=== PATIENT | female | born 1975 ===

== ENCOUNTER 2018-09-11 20:46 | Inpatient (IN) | payer BC ==
[2018-09-11] MEDS ORDERED: Sodium Chloride 0.9% 1,000 ML IV STA (22:01)
[2018-09-11 22:37] LABS: BASO % 0.6 % (0.0-2.0); EOS # 0.1 K/uL (0.0-0.7); EOS % 1.8 % (0.0-4.0); HEMOGLOBIN 11.3 g/dL (12.0-16.0); LYMPH % 40.2 % (20.0-40.0); MEAN CELL VOLUME 86.3 fl (81.0-99.0); MEAN CORPUSCULAR HEMOGLOBIN 28.4 pg (27.0-31.0); MEAN PLATELET VOLUME 10.3 fl (7.2-11.7); MONO # 0.3 K/uL (0.0-0.8); MONO % 6.6 % (0.0-10.0); NEUT # 2.5 K/uL (1.8-7.0); NEUT % 50.8 % (50.0-75.0); NRBC % 0.1 % (0.0-0.0); RBC 3.96 Mil/uL (3.80-5.20); RED CELL DISTRIBUTION WIDTH 13.9 % (11.5-14.5)
[2018-09-11 22:47] LABS: ALB/GLOB RATIO 1.3 (1.0-2.1); ALBUMIN 3.8 g/dL (3.5-5.0); ALT/SGPT 20 U/L (9-52); AST/SGOT 19 U/L (14-36); BLOOD UREA NITROGEN 23 mg/dl (7-17); CALCIUM 8.5 mg/dL (8.4-10.2); GFR NON-AFRICAN AMERICAN 60; LIPASE 150 U/L (23-300)
[2018-09-11 22:49] LABS: SQUAMOUS EPITHIAL 1 /hpf (0-5); URINE BACTERIA RARE (<OCC); URINE BILIRUBIN NEGATIVE (NEGATIVE); URINE BLOOD NEGATIVE (NEGATIVE); URINE CLARITY SLIGHTY-CLOUDY (Clear); URINE COLOR YELLOW (YELLOW); URINE GLUCOSE (UA) NEG (NEGATIVE); URINE LEUKOCYTE ESTERASE NEG Leu/uL (Negative); URINE PROTEIN 30 mg/dL (NEGATIVE); URINE UROBILINOGEN 0.2-1.0 mg/dL (0.2-1.0)
--- NOTE | 2018-09-11 23:09 | ED PDOC ---
HPI: Abdomen Time Seen by Provider: 09/11/18 21:33 Chief Complaint (Nursing): Abdominal Pain Chief Complaint (Provider): Abdominal Pain History Per: Patient History/Exam Limitations: no limitations Onset/Duration Of Symptoms: Days (x 1 week) Current Symptoms Are (Timing): Still Present Quality Of Discomfort: "Pain" Associated Symptoms: Nausea Exacerbating Factors: Food Additional Complaint(s): 43 year old female with a history of gastritis presents to the ED with abdominal pain for 1 week. Patient was seen at [facility] for same symptoms, had CT performed that revealed gallbladder thickening, but no stones. She was discharged from the ER and told to follow up with her primary doctor. Since then, the pain has gotten worse. Patient reports pain and nausea after eating. Denies fever and diarrhea. PMD: in [place] Past Medical History Reviewed: Historical Data, Nursing Documentation, Vital Signs Vital Signs: Last Vital Signs Temp 98.3 F 09/11/18 20:55 Pulse 67 09/11/18 20:55 Resp 16 09/11/18 20:55 BP 121/66 09/11/18 20:55 Pulse Ox 99 09/11/18 20:55 Primary Care Provider: FAMILY PROVIDER,NO - Medical History PMH: No Chronic Diseases, Gastritis - Surgical History Other surgeries: gastric sleeve, breast surgery and tubal ligation - Family History Family History: States: Unknown Family Hx - Social History Current smoker - smoking cessation education provided: No Alcohol: None Drugs: Denies - Home Medications Home Medications: Ambulatory Orders Medication Instructions Recorded No Known Home Med 09/12/18 - Allergies Allergies/Adverse Reactions: Allergies Allergy/AdvReac Type Severity Reaction Status Date / Time No Known Allergies Allergy Verified 09/11/18 20:54 Review of Systems ROS Statement: Except As Marked, All Systems Reviewed And Found Negative Constitutional: Negative for: Fever Gastrointestinal: Positive for: Nausea, Abdominal Pain. Negative for: Vomiting, Diarrhea Physical Exam - Reviewed Nursing Documentation Reviewed: Yes Vital Signs Reviewed: Yes - Physical Exam Appears: Positive for: Uncomfortable Head Exam: Positive for: ATRAUMATIC, NORMAL INSPECTION, NORMOCEPHALIC Skin: Positive for: Normal Color, Warm, Dry Eye Exam: Positive for: EOMI, Normal appearance, PERRL ENT: Positive for: Normal ENT Inspection Neck: Positive for: Normal, Painless ROM, Supple Cardiovascular/Chest: Positive for: Regular Rate, Rhythm. Negative for: Murmur Respiratory: Positive for: Normal Breath Sounds. Negative for: Respiratory Distress Gastrointestinal/Abdominal: Positive for: Other (Schwarz's sign). Negative for: Mass, Guarding Back: Positive for: Normal Inspection. Negative for: L CVA Tenderness, R CVA Tenderness Extremity: Positive for: Normal ROM. Negative for: Deformity Neurological/Psych: Positive for: Awake, Alert, Normal Tone, Oriented (x 3). Negative for: Motor/Sensory Deficits - Laboratory Results Result Diagrams: 09/12/18 06:11 09/12/18 06:11 Lab Results: Total Bilirubin 0.3 mg/dl (0.2-1.3) 09/11/18 22: AST 19 U/L (14-36) 09/11/18: ALT 20 U/L (9-52) 09/11/18 22: Alkaline Phosphatase 54 U/L (38-126) 09/11/18 22: Total Protein 6.9 G/DL (6.3-8.2) 09/11/18 22: Albumin 3.8 g/dL (3.5-5.0) 09/11/18 22: Globulin 3.0 gm/dL (2.2-3.9) 09/11/18 22: Albumin/Globulin Ratio 1.3 (1.0-2.1) 09/11/18 22: Lipase 150 U/L (23-300) 09/11/18 22:28 Urine Color Yellow (YELLOW) 09/11/18 22: Urine Clarity Slighty-cloudy (Clear) 09/11/18 22: Urine pH 6.0 (5.0-8.0) 09/11/18 22: Ur Specific [place] 1.026 (1.003-1.030) 09/11/18 22: Urine Protein 30 mg/dL (NEGATIVE) 09/11/18 22: Urine Glucose (UA) Neg mg/dL (NEGATIVE) 09/11/18 22: Urine Ketones Negative mg/dL (NEGATIVE) 09/11/18 22: Urine Blood Negative (NEGATIVE) 09/11/18 22: Urine Nitrate Negative (NEGATIVE) 09/11/18 22: Urine Bilirubin Negative (NEGATIVE) 05/28/19 22:28 Urine Urobilinogen 0.2-1.0 mg/dL (0.2-1.0) 09/11/18 22:28 Ur Leukocyte Esterase Neg Gordon/uL (Negative) 09/11/18 22:28 Urine RBC (Auto) 3 /hpf (0-3) 09/11/18 22:28 Urine Microscopic WBC 1 /hpf (0-5) 09/11/18 22:28 Ur Squamous Epith Cells 1 /hpf (0-5) 09/11/18 22:28 Urine Bacteria Rare (<OCC) 09/11/18 22:28 - ECG O2 Sat by Pulse Oximetry: 99 (RA) Pulse Ox Interpretation: Normal Medical Decision Making Medical Decision Makin:45 Impression: 43 year old female with abdominal pain Initial Plan: --CMP --CBC --Lipase --NS IV 1,000 mls --Pepcid 20 mg IVP --Toradol 30 mg IV --Zofran 4 mg IV --Blood cx --UA --Gallbladder US 0029 US FINDINGS: LIVER: Within normal limits in size; but increased in echogenicity compatible with steatosis. No mass. GALLBLADDER: The gallbladder appears normal in size and configuration. There is gallbladder wall thickening noted which measured 5.4 mm transversely. No pericholecystic fluid detected. COMMON BILE DUCT: Within normal limits in size. 2.9 mm transverse caliber. PANCREAS: The distal pancreas is obscured by bowel gas. The visualized portion of the pancreas appears within normal limits. RIGHT KIDNEY: Unremarkable. Normal renal contours. No renal mass or calculus. No hydronephrosis. IMPRESSION: Evidence of hepatic steatosis. Thickening of the gallbladder wall may indicate chronic cholecystitis. 0055 Labs reviewed, no clinically significant abnormalities Patient will be admitted for acute cholecystitis, abdominal pain given persistent abdominal pain as well as 2nd emergency room visit; case discussed with Dr. Kaiser, vice president investor relations who will speak with Dr. Tapia. Patient to be admitted under Dr Ronquillo service as per Dr Kaiser ----- Scribe Attestation: Documented by Apryl Johnson, acting as a scribe for Lamont Torres MD Provider Scribe Attestation: All medical record entries made by the Scribe were at my direction and personally dictated by me. I have reviewed the chart and agree that the record accurately reflects my personal performance of the history, physical exam, medical decision making, and the department course for this patient. I have also personally directed, reviewed, and agree with the discharge instructions and d isposition. Disposition - Clinical Impression Clinical Impression: Cholecystitis - Disposition Disposition: Routine/Home Disposition Time: 02:00 Condition: STABLE
[2018-09-12] MEDS ORDERED: Sodium Chloride 0.9% 1,000 ML IV STA (00:55)
[2018-09-12] MEDS ORDERED: Lactated Ringer's 1,000 ML IV SCH (02:00)
--- NOTE | 2018-09-12 02:02 | CP.PCM.HP ---
<Jackeline Kaiser - Last Filed: 09/12/18 01:56> History of Present Illness - History of Present Illness History of Present Illness: Surgery: Dr. Zamarripa CC: RUQ abdominal pain HPI: Patient is a 43 y/o female w/ pmhx of sleeve gastrectomy 2yrs ago in [facility] and well as gastritis presents complaining of RUQ and epigastric pain that has been present the past two weeks. She states the pain has progressively gotten worse since. She was seen in an outside hospital and underwent CT scan which showed thicken gallbladder wall and was subsequently d/c'd home however the pain did not subsided. She reports some nausea, no vomiting. Denies fever, chills. She states she has had similar episodes in the past in which she did undergo endoscopy work up for gastritis. She was told she did have mild gastritis, biopsy negative and was placed on pepcid which she is still currently taking. She denies diarrhea or constipation. She states since her operation she has lost 78lbs over 2 years. PMH: gastritis, obesity s/p bariatric surgery PSH: sleeve gastrectomy, , EGD w/ bx Social: denies etoh, tobacco or drugs Fam: noncontributory Medications: pepcid, MV, Iron NKDA Present on Admission - Present on Admission Any Indicators Present on Admission: No Review of Systems - Constitutional Constitutional: absent: Anorexia, Chills, Fever - EENT Eyes: absent: Blurred Vision, Change in Vision Ears: absent: Disequilibrium, Dizziness Nose/Mouth/Throat: absent: Nasal Congestion, Nose Pain - Cardiovascular Cardiovascular: absent: Chest Pain, Chest Pain at Rest, Dyspnea - Respiratory Respiratory: absent: Cough, Dyspnea, Wheezing - Gastrointestinal Gastrointestinal: Abdominal Pain, Nausea. absent: Bloating, Constipation, Cramping, Diarrhea, Vomiting - Genitourinary Genitourinary: absent: Hematuria, Pyuria - Musculoskeletal Musculoskeletal: absent: Myalgias, Neck Pain - Integumentary Integumentary: absent: Lesions, Sores - Neurological Neurological: absent: Headaches, Vertigo - Psychiatric Psychiatric: absent: Anxiety, Depression - Endocrine Endocrine: absent: Fatigue, Palpitations - Hematologic/Lymphatic Hematologic: absent: Easy Bleeding, Easy Bruising Past Patient History - Past Social History Alcohol: None Drugs: Denies - GASTROINTESTINAL Hx Gastritis: Yes - PSYCHIATRIC Hx Substance Use: No Meds Allergies/Adverse Reactions: Allergies Allergy/AdvReac Type Severity Reaction Status Date / Time No Known Allergies Allergy Verified 09/11/18 20:54 Physical Exam - Constitutional Appears: Non-toxic, No Acute Distress - Head Exam Head Exam: ATRAUMATIC, NORMOCEPHALIC - Eye Exam Eye Exam: EOMI, Normal appearance - ENT Exam ENT Exam: Mucous Membranes Moist - Respiratory Exam Respiratory Exam: NORMAL BREATHING PATTERN. absent: Respiratory Distress - Cardiovascular Exam Cardiovascular Exam: REGULAR RHYTHM. absent: Tachycardia - GI/Abdominal Exam GI & Abdominal Exam: Soft, Tenderness (RUQ and epigastric, +shin's ). absent: Distended, Guarding, Hernia, Rebound Additional comments: laparoscopic incisions well healed - Extremities Exam Extremities exam: Positive for: normal inspection. Negative for: calf tenderness - Neurological Exam Neurological exam: Alert, Oriented x3 - Psychiatric Exam Psychiatric exam: Normal Affect, Normal Mood - Skin Skin Exam: Dry, Warm Results - Vital Signs Recent Vital Signs: Last Vital Signs Temp 98.3 F 09/11/18 20:55 Pulse 67 09/11/18 20:55 Resp 16 09/11/18 20:55 BP 121/66 09/11/18 20:55 Pulse Ox 99 09/12/18 01:49 - Labs Result Diagrams: 09/11/18 22:28 09/11/18 22:28 Labs: Laboratory Results - last 24 hr 09/11/18 09/11/18 09/11/18 22:28 22:28 22:28 WBC 5.0 RBC 3.96 Hgb 11.3 L Hct 34.2 MCV 86.3 MCH 28.4 MCHC 33.0 RDW 13.9 Plt Count 185 MPV 10.3 Neut % (Auto) 50.8 Lymph % (Auto) 40.2 H [place] % (Auto) 6.6 Eos % (Auto) 1.8 Baso % (Auto) 0.6 Neut # (Auto) 2.5 Lymph # (Auto) 2.0 [place] # (Auto) 0.3 Eos # (Auto) 0.1 Baso # (Auto) 0.0 Sodium 136 Potassium 3.4 L Chloride 103 Carbon Dioxide 26 Anion Gap 10 BUN 23 H Creatinine 1.0 Est GFR ( Amer) > 60 Est GFR (Non-Af Amer) 60 Random Glucose 96 Calcium 8.5 Total Bilirubin 0.3 AST 19 ALT 20 Alkaline Phosphatase 54 Total Protein 6.9 Albumin 3.8 Globulin 3.0 Albumin/Globulin Ratio 1.3 Lipase 150 Urine Color Yellow Urine Clarity Slighty-cloudy Urine pH 6.0 Ur Specific [place] 1.026 Urine Protein 30 Urine Glucose (UA) Neg Urine Ketones Negative Urine Blood Negative Urine Nitrate Negative Urine Bilirubin Negative Urine Urobilinogen 0.2-1.0 Ur Leukocyte Esterase Neg Urine RBC (Auto) 3 Urine Microscopic WBC 1 Ur Squamous Epith Cells 1 Urine Bacteria Rare - Imaging and Cardiology US - abdomen Status: Image reviewed by me, Pending (+sludge, + wall thickening, +calcified GB wall, +stones) Assessment & Plan - Assessment and Plan (Free Text) Assessment: 43 y/o female w/ acute on chronic cholecystitis Plan: -npo -ivf -iv abx -pain control -zofran -OOB -pepcid -plan for OR tomorrow after 10am -further recs per Dr. Zamarripa [facility] PGY4 <Rodney Zamarripa - Last Filed: 09/13/18 13:40> Results - Vital Signs Recent Vital Signs: Last Vital Signs Temp 99.1 F 09/13/18 12:18 Pulse 59 L 09/13/18 12:18 Resp 20 09/13/18 12:18 BP 98/59 L 09/13/18 08:24 Pulse Ox 100 09/13/18 12:18 - Labs Result Diagrams: 09/12/18 06:11 09/12/18 06:11 Assessment & Plan - Assessment and Plan (Free Text) Plan: All medical record entries made by the resident were at my direction. I have reviewed the chart and agree that the record accurately reflects my personal performance of the history, physical exam, and medical decision making.
[2018-09-12] MEDS ORDERED: Piperacillin/Tazobact 3.375 GM in Sodium Chloride 0.9% 100 ML IV STA (02:19)
[2018-09-12] MEDS ORDERED: Ciprofloxacin 400mg/200ml D5W 400 MG/200 ML BAG IV STA (02:20)
[2018-09-12] MEDS ORDERED: Ciprofloxacin 400mg/200ml D5W 400 MG/200 ML BAG IVPB ONE ×2 (02:22→08:38)
[2018-09-12] MEDS: HYDROmorphone 0.5 mg/0.5 ml ISec IVP PRN ×5 (03:23→14:14)
[2018-09-12] MEDS: Potassium Chloride 20 mEq 100 ML IVPB SCH ×2 (04:58→07:03)
[2018-09-12 06:32] LABS: BASO % 0.5 % (0.0-2.0); EOS % 0.6 % (0.0-4.0); HEMOGLOBIN 10.4 g/dL (12.0-16.0); LYMPH # 1.1 K/uL (1.0-4.3); LYMPH % 21.6 % (20.0-40.0); MEAN CELL VOLUME 86.2 fl (81.0-99.0); MEAN CORPUSCULAR HEMOGLOBIN 28.8 pg (27.0-31.0); MEAN CORPUSCULAR HGB CONC 33.3 g/dL (33.0-37.0); MEAN PLATELET VOLUME 10.3 fl (7.2-11.7); MONO # 0.3 K/uL (0.0-0.8); MONO % 5.6 % (0.0-10.0); NEUT # 3.8 K/uL (1.8-7.0); NEUT % 71.7 % (50.0-75.0); RBC 3.6 Mil/uL (3.80-5.20); RED CELL DISTRIBUTION WIDTH 13.8 % (11.5-14.5); WHITE BLOOD COUNT 5.3 K/uL (4.8-10.8)
[2018-09-12 06:38] LABS: INR 1.1; PROTHROMBIN TIME 12.6 Seconds (9.8-13.1)
[2018-09-12 06:41] LABS: PARTIAL THROMBOPLASTIN TIME 28.8 Seconds (25.6-37.1)
[2018-09-12 06:47] LABS: ALB/GLOB RATIO 1.2 (1.0-2.1); ALBUMIN 3.3 g/dL (3.5-5.0); ALT/SGPT 17 U/L (9-52); AST/SGOT 17 U/L (14-36); BLOOD UREA NITROGEN 20 mg/dl (7-17); CALCIUM 8.2 mg/dL (8.4-10.2); GFR NON-AFRICAN AMERICAN > 60
--- NOTE | 2018-09-12 08:28 | RAD ---
Date of service: 09/12/2018 PROCEDURE: CHEST RADIOGRAPH, 1 VIEW HISTORY: pre op COMPARISON: None available. FINDINGS: LUNGS: Clear. PLEURA: No pneumothorax or pleural fluid seen. CARDIOVASCULAR: No aortic atherosclerotic calcification present. Normal. OSSEOUS STRUCTURES: No significant abnormalities. VISUALIZED UPPER ABDOMEN: Normal. OTHER FINDINGS: None. IMPRESSION: No active disease.
[2018-09-12] MEDS ORDERED: Ciprofloxacin 400mg/200ml D5W 400 MG/200 ML BAG IVPB SCH (09:00)
[2018-09-12] MEDS ORDERED: Propofol 10 mg/ml Inj (20 ML) ONE (10:13)
[2018-09-12] MEDS ORDERED: Midazolam 2 MG/2 ML VIAL ONE (10:13)
[2018-09-12] MEDS ORDERED: ePHEDrine 50 mg/ml Inj ONE (10:14)
[2018-09-12] MEDS ORDERED: Rocuronium 10 mg/ml (5 ml) ONE (10:15)
[2018-09-12] MEDS ORDERED: Succinylcholine 200 mg/10 ml Inj IV ONE (10:16)
[2018-09-12] MEDS ORDERED: Lidocaine 4% (Laryng-O-Jet) Kit MM ONE (10:16)
--- NOTE | 2018-09-12 10:23 | CARD ---
APPROVED REPORT Date of service: 09/12/2018 EKG Measurement Heart [id number] <Conclusion> Sinus bradycardia Otherwise normal ECG
[2018-09-12] MEDS ORDERED: Bupivacaine 0.5% Inj(30mL) ONE (10:42)
[2018-09-12] MEDS ORDERED: Lactated Ringer's 1,000 ML IV ONE ×2 (10:55→12:23)
[2018-09-12] MEDS ORDERED: Dexamethasone 4 mg/1 ml ONE (11:24)
[2018-09-12] MEDS ORDERED: Neostigmine 1:1000 (1 mg/ml) Inj ONE (11:39)
--- NOTE | 2018-09-12 12:26 | PCM.SURG1 ---
Surgeon's Initial Post Op Note - Surgeon's Notes Surgeon: Dr. Tapia Supervisor Sterile Processing: PGY2 Type of Anesthesia: General Endo Anesthesia Administered By: Dr. Paige Pre-Operative Diagnosis: Acute Cholecystitis Operative Findings: Acute and Chronically inflammed gallbadder. Critical view of saftey achieved. Stone palpated in gallbladder. Post-Operative Diagnosis: Acute on Chronic Cholecystitis Operation Performed: 1. Laparoscopic Cholecystectomy Specimen/Specimens Removed: 1. Gallbadder Estimated Blood Loss: EBL {In ML}: 5 Drains Used: No Drains Post-Op Condition: Good Date of Surgery/Procedure: 09/12/18 Time of Surgery/Procedure: 12:36
--- NOTE | 2018-09-12 13:19 | US ---
Date of service: 09/11/2018 HISTORY: RUQ COMPARISON: None. TECHNIQUE: Sonographic evaluation of the right upper quadrant of the abdomen. FINDINGS: LIVER: Measures 15.1 cm in length. Normal echogenicity of the liver parenchyma. No mass. No intrahepatic bile duct dilatation. GALLBLADDER: Gallbladder moderately distended with diffuse gallbladder wall thickening measuring up to 5 mm. No pericholecystic fluid. No intraluminal gallstones present. No positive sonographic Schwarz sign elicited. Some possible echogenicities within the gallbladder wall thickened appearance nonshadowing. COMMON BILE DUCT: Measures 3 mm. No stones. No dilatation. PANCREAS: Unremarkable as visualized. No mass. No ductal dilatation. RIGHT KIDNEY: Measures 11.1 x 4.0 x 3.7 cm in length. Normal echogenicity. No calculus, mass, or hydronephrosis. AORTA: No aneurysmal dilatation. IVC: Unremarkable. OTHER FINDINGS: None . IMPRESSION: Diffuse gallbladder wall thickening without intraluminal stones appreciated. A chronic acalculous cholecystitis is a consideration. Gallbladder wall hyperplasia-diffuse with or without diffuse cholesterolosis. No positive ultrasound Schwarz sign. No pericholecystic fluid seen. No dilated ducts. Clinical correlation/follow-up advised.
[2018-09-12] MEDS ORDERED: oxyCODONE 5 mg Immediate Release Tab PO PRN (15:12)
[2018-09-12] MEDS: metroNIDAZOLE 500mg/100ml NS 100 ML IVPB SCH (17:15)
[2018-09-12] MEDS: Lactated Ringer's 1,000 ML IV SCH ×2 (17:16→22:02)
[2018-09-12] MEDS: Ciprofloxacin 400mg/200ml D5W 400 MG/200 ML BAG IVPB SCH (20:42)
[2018-09-13] MEDS: metroNIDAZOLE 500mg/100ml NS 100 ML IVPB SCH ×2 (00:11→09:22)
--- NOTE | 2018-09-13 00:39 | OP ---
PROCEDURE DATE: 09/12/2018 PREOPERATIVE DIAGNOSIS: Acute cholecystitis. POSTOPERATIVE DIAGNOSIS: Acute on chronic cholecystitis. PROCEDURE: Laparoscopic cholecystectomy. SURGEON: Rodney Marroquin MD [place] ARCHITECT: Gurpreet Moss, PGY-2 ANESTHESIA: General. ANESTHESIOLOGIST: Earnestine Paige MD ESTIMATED BLOOD LOSS: 5 mL. SPECIMENS: Gallbladder. INDICATION FOR PROCEDURE: This is a 43-year-old female with a past medical history significant for a sleeve gastrectomy two years in [facility]. The patient also has a history of gastritis. However, over the last two weeks, she has been having increasing right upper quadrant pain and decrease in diet and appetite. The patient initially underwent a CT scan, which showed thickening of the gallbladder wall and the patient subsequently had continued pain in the right upper quadrant. After evaluation by a surgical team, decision was made to undergo a laparoscopic possible open cholecystectomy. The patient had agreed to the procedure set forth. All risks and benefits were explained to the patient and he patient has agreed. DESCRIPTION OF PROCEDURE: The patient was brought into the operating room and placed in the supine position. General anesthesia was induced. Endotracheal tube was placed and confirmed with end-tidal CO2. The patient was prepped and draped in the usual sterile fashion. Standard timeout was taken confirming the patient, procedure, and laterality. Perforating tower clamps were then used at the infraumbilical site. Local anesthesia of 0.25% Marcaine approximately 4 mL was used to infiltrate the skin and subcutaneous tissue. Using a #15 blade, an incision was made through the skin. Next, a tonsil clamp was used to dissect through the layers. At this time, a Veress needle technique was used to enter into the abdomen. The fascia was elevated and the Veress needle was inserted. Proper position was confirmed by aspiration and flushing with a saline meniscus test. At this time, the insufflation of carbon dioxide was used to insufflate the abdomen. The patient tolerated the insufflation well. Opening pressure was marked at 1 mmHg. The abdomen was then allowed to insufflate with carbon dioxide to a total pressure of 15 mmHg. The patient tolerated the insufflation well. At this time, a 5-mm trocar was then used to enter through the inferior umbilical incision using a Visiport technique, layer by layer entering into the abdomen and fascia. A 5-mm 30-degree laparoscope was then inserted. Evaluation of the entire abdomen was performed. There were no initial injuries noted on the initial trocar placement. Significant filmy adhesions and stomach was noted to have adhesions to the dome of the gallbladder. The other omental adhesions were noted to be on the anterior abdominal wall. Endoscopic shear and [place] with Bovie electrocautery was used to take down some of these adhesions at this time. Two lateral 5-mm trocar sites were placed in the right upper quadrant of the abdomen, spacing about five fingerbreadths apart. These incisions were infiltrated with 0.25% Marcaine and a #15 blade was used to make the skin incision. No injuries were noted on the initial trocar placement. Attention was then taken towards the subxiphoid region and 0.25% Marcaine local was then infiltrated. A #15 blade was then used to make an incision for an 11-mm trocar. The trocar then went in safely. At this time, graspers were then used to continue the dissection of the gallbladder and removal of the filmy adhesions. The gallbladder was then retracted superiorly over the liver towards the right upper quadrant. Continuation of dissection using a combination of [place] and Bovie electrocautery were used. The neck of the gallbladder was then retracted laterally to allow exposure of Calot's triangle. Appropriate dissection was made of the cystic artery and cystic duct. The critical view of safety was appropriately achieved. At this time, the 5-mm clip was used to doubly clip inferiorly, one clip superiorly of both the cystic duct and artery. Endoscopic yvonne were then used to cut. Close inspection of the cystic duct and cystic artery were noted. There was no bleeding or leakage from either the cystic duct or artery. The gallbladder was then dissected from its peritoneal attachments by the use of hook Bovie electrocautery. Hemostasis was checked and the gallbladder had contained one large stone. Upon final removal of the gallbladder from the liver bed, the gallbladder was then entered using the hook Bovie electrocautery, which ended up spilling approximately 25 mL of bile at this time. The remainder of the gallbladder was taken off the liver bed, placed in the EndoCatch bag and removed through the 11-mm port from the subxiphoid position. Afterwards, the patient was then leveled and irrigation was then used in the gallbladder fossa and Payton's pouch. No bleeding or leak was noted from the cystic artery and duct The secondary trocar sites were removed under direct visualization. No bleeding was noted from the trocar sites. The laparoscope was then withdrawn from the umbilical trocar, which was then removed. The abdomen was allowed to collapse. The 11-mm trocar site subxiphoid was then closed with an [id number] 0 Vicryl on a UR-6. The remainder of the skin incisions were closed with 4-0 Monocryl and Dermabond was placed on top. The patient tolerated the procedure well and was awakened and taken to the postanesthesia care unit in stable condition. Dr. Marroquin was present and participated in all aspects of this case. All counts were correct at the end of the case. Gurpreet Moss DO Rodney Marroquin MD MTDNirmala
[2018-09-13 08:26] VITALS: BP 98/59
--- NOTE | 2018-09-13 09:41 | CP.PCM.DIS ---
<Gurpreet Moss - Last Filed: 09/13/18 10:30> Provider - Provider Date of Admission: 09/12/18 00:52 Attending physician: Rodney Zamarripa MD Consults: 09/12/18 01:47 Case Management Referral Routine Comment: Physician Instructions: Reason For Exam: Reason for Referral: Discharge Planning Time Spent in preparation of Discharge (in minutes): 47 Hospital Course - Lab Results Lab Results: Micro Results 09/11/18 22:52 Blood Blood Culture - Preliminary NO GROWTH AFTER 24 HOURS 09/11/18 22:22 Blood Blood Culture - Preliminary NO GROWTH AFTER 24 HOURS Most Recent Lab Values WBC 5.3 K/uL (4.8-10.8) 09/12/18 06:11 RBC 3.60 Mil/uL (3.80-5.20) L 09/12/18 06:11 Hgb 10.4 g/dL (12.0-16.0) L 09/12/18 06:11 Hct 31.0 % (34.0-47.0) L 09/12/18 06:11 MCV 86.2 fl (81.0-99.0) 09/12/18 06:11 MCH 28.8 pg (27.0-31.0) 09/12/18 06:11 MCHC 33.3 g/dL (33.0-37.0) 09/12/18 06:11 RDW 13.8 % (11.5-14.5) 09/12/18 06:11 Plt Count 154 K/uL (130-400) 09/12/18 06:11 MPV 10.3 fl (7.2-11.7) 09/12/18 06:11 Neut % (Auto) 71.7 % (50.0-75.0) 09/12/18 06:11 Lymph % (Auto) 21.6 % (20.0-40.0) 09/12/18 06:11 Ramsey % (Auto) 5.6 % (0.0-10.0) 09/12/18 06:11 Eos % (Auto) 0.6 % (0.0-4.0) 09/12/18 06:11 Baso % (Auto) 0.5 % (0.0-2.0) 09/12/18 06:11 Neut # (Auto) 3.8 K/uL (1.8-7.0) 09/12/18 06:11 Lymph # (Auto) 1.1 K/uL (1.0-4.3) 09/12/18 06:11 Ramsey # (Auto) 0.3 K/uL (0.0-0.8) 09/12/18 06:11 Eos # (Auto) 0.0 K/uL (0.0-0.7) 09/12/18 06:11 Baso # (Auto) 0.0 K/uL (0.0-0.2) 09/12/18 06:11 PT 12.6 Seconds (9.8-13.1) 09/12/18 06:11 INR 1.1 09/12/18 06:11 APTT 28.8 Seconds (25.6-37.1) 09/12/18 06:11 Sodium 137 mmol/l (132-148) 09/12/18 06:11 Potassium 4.5 MMOL/L (3.6-5.0) 09/12/18 06:11 Chloride 104 mmol/L (98-107) 09/12/18 06:11 Carbon Dioxide 26 mmol/L (22-30) 09/12/18 06:11 Anion Gap 12 (10-20) 09/12/18 06:11 BUN 20 mg/dl (7-17) H 09/12/18 06:11 Creatinine 0.7 mg/dl (0.7-1.2) 09/12/18 06:11 Est GFR ( Amer) > 60 09/12/18 06:11 Est GFR (Non-Af Amer) > 60 09/12/18 06:11 Random Glucose 90 mg/dL (65-105) 09/12/18 06:11 Calcium 8.2 mg/dL (8.4-10.2) L 09/12/18 06:11 Phosphorus 3.9 mg/dl (2.5-4.5) 09/12/18 06:11 Magnesium 2.1 MG/DL (1.6-2.3) 09/12/18 06:11 Total Bilirubin 0.3 mg/dl (0.2-1.3) 09/12/18 06:11 AST 17 U/L (14-36) 09/12/18 06:11 ALT 17 U/L (9-52) 09/12/18 06:11 Alkaline Phosphatase 42 U/L (38-126) 09/12/18 06:11 Total Protein 6.1 G/DL (6.3-8.2) L 09/12/18 06:11 Albumin 3.3 g/dL (3.5-5.0) L 09/12/18 06:11 Globulin 2.8 gm/dL (2.2-3.9) 09/12/18 06:11 Albumin/Globulin Ratio 1.2 (1.0-2.1) 09/12/18 06:11 Lipase 150 U/L (23-300) 09/11/18 22:28 Urine Color Yellow (YELLOW) 09/11/18 22: Urine Clarity Slighty-cloudy (Clear) 09/11/18 22:28 Urine pH 6.0 (5.0-8.0) 09/11/18 22:28 Ur Specific [place] 1.026 (1.003-1.030) 09/11/18 22:28 Urine Protein 30 mg/dL (NEGATIVE) 09/11/18 22:28 Urine Glucose (UA) Neg mg/dL (NEGATIVE) 09/11/18 22:28 Urine Ketones Negative mg/dL (NEGATIVE) 09/11/18 22:28 Urine Blood Negative (NEGATIVE) 09/11/18 22:28 Urine Nitrate Negative (NEGATIVE) 09/11/18 22:28 Urine Bilirubin Negative (NEGATIVE) 09/11/18 22:28 Urine Urobilinogen 0.2-1.0 mg/dL (0.2-1.0) 09/11/18 22:28 Ur Leukocyte Esterase Neg Gordon/uL (Negative) 09/11/18 22:28 Urine RBC (Auto) 3 /hpf (0-3) 09/11/18 22:28 Urine Microscopic WBC 1 /hpf (0-5) 09/11/18 22:28 Ur Squamous Epith Cells 1 /hpf (0-5) 09/11/18 22:28 Urine Bacteria Rare (<OCC) 09/11/18 22:28 - Hospital Course Hospital Course: 43F pmhx significant for Gastric Bypass presented w/ Mid-epigastric to RUQ abdominal pain. Work up showed Acute Cholecystitis, decision was made to go to the operating room for a cholecystectomy. Patient underwent laparoscopic cholecystectomy, surgery was uneventful. Post operatively patient was tolerating regular diet. Denies nausea, vomiting, fevers chills. Cleared for discharge from a surgical standpoint, and follow up in [address] Tapia in clinic. Discharge Exam - Head Exam Head Exam: ATRAUMATIC, NORMAL INSPECTION, NORMOCEPHALIC - Eye Exam Eye Exam: EOMI. absent: Scleral icterus - ENT Exam ENT Exam: Mucous Membranes Moist - Respiratory Exam Respiratory Exam: Accessory Muscle Use, NORMAL BREATHING PATTERN. absent: Respiratory Distress - Cardiovascular Exam Cardiovascular Exam: REGULAR RHYTHM. absent: Bradycardia, Tachycardia - GI/Abdominal Exam GI & Abdominal Exam: Soft, Tenderness (mild tenderness around incisions). absent: Distended, Firm, Guarding, Hernia, Rigid Additional comments: incision w/ dermabond. C/D/I - Neurological Exam Neurological exam: Alert, Oriented x3 - Psychiatric Exam Psychiatric exam: Normal Affect - Skin Skin Exam: Intact, Warm Discharge Plan - Follow Up Plan Condition: STABLE Disposition: HOME/ ROUTINE Instructions: How to Wash Your Hands Properly, How to Prevent Surgical Site Infections, Cholecystectomy (DC), Cholecystectomy, Laparoscopic Surgery Additional Instructions: Can Shower Today. Do not swim in ocean or soak in bath. No heavy lifting > 15- 20lbs for 4-6 weeks. Take Tylenol and Motrin for pain, alternate every4 hours as needed. Encourage to move and walk around. No strenuous activity Can resume normal diet. Anticipate some loose bowel movements for 2 weeks after surgery however will improve. If fever > 100.4 take Tylenol. If fever persists go to the Emergency department follow up with Dr. Tapia in 2 weeks in office for evaluation. Will prescribe 5 day course of antibiotics. Take medication as prescribed : Cipro 400 mg every 12 hours for 5 days Flagyl 500mg every 8 hours for 5 days SEEK MEDICAL ATTENTION IF SYMPTOMS WORSEN, PAIN NOT RELIEVED BY rx, VOMITING, ABDOMINAL DISTENSION, YELLOW COLOR OF SKIN OR EYES OR FOR ANY OTHER CONCERNS Referrals: Rodney Zamarripa MD [Staff Provider] - 3 Weeks (follow up in 2-3 weeks. call for an appointment) <Rodney Zamarripa - Last Filed: 09/13/18 13:32> Provider - Provider Date of Admission: 09/12/18 00:52 Attending physician: Rodney Zamarripa MD Consults: 09/12/18 01:47 Case Management Referral Routine Comment: Physician Instructions: Reason For Exam: Reason for Referral: Discharge Planning Hospital Course - Lab Results Lab Results: Micro Results 09/11/18 22:52 Blood Blood Culture - Preliminary NO GROWTH AFTER 24 HOURS 09/11/18 22:22 Blood Blood Culture - Preliminary NO GROWTH AFTER 24 HOURS Most Recent Lab Values WBC 5.3 K/uL (4.8-10.8) 09/12/18 06:11 RBC 3.60 Mil/uL (3.80-5.20) L 09/12/18 06:11 Hgb 10.4 g/dL (12.0-16.0) L 09/12/18 06:11 Hct 31.0 % (34.0-47.0) L 09/12/18 06:11 MCV 86.2 fl (81.0-99.0) 09/12/18 06:11 MCH 28.8 pg (27.0-31.0) 09/12/18 06:11 MCHC 33.3 g/dL (33.0-37.0) 09/12/18 06:11 RDW 13.8 % (11.5-14.5) 09/12/18 06:11 Plt Count 154 K/uL (130-400) 09/12/18 06:11 MPV 10.3 fl (7.2-11.7) 09/12/18 06:11 Neut % (Auto) 71.7 % (50.0-75.0) 09/12/18 06:11 Lymph % (Auto) 21.6 % (20.0-40.0) 09/12/18 06:11 Ramsey % (Auto) 5.6 % (0.0-10.0) 09/12/18 06:11 Eos % (Auto) 0.6 % (0.0-4.0) 09/12/18 06:11 Baso % (Auto) 0.5 % (0.0-2.0) 09/12/18 06:11 Neut # (Auto) 3.8 K/uL (1.8-7.0) 09/12/18 06:11 Lymph # (Auto) 1.1 K/uL (1.0-4.3) 09/12/18 06:11 Ramsey # (Auto) 0.3 K/uL (0.0-0.8) 09/12/18 06:11 Eos # (Auto) 0.0 K/uL (0.0-0.7) 09/12/18 06:11 Baso # (Auto) 0.0 K/uL (0.0-0.2) 09/12/18 06:11 PT 12.6 Seconds (9.8-13.1) 09/12/18 06:11 INR 1.1 09/12/18 06:11 APTT 28.8 Seconds (25.6-37.1) 09/12/18 06:11 Sodium 137 mmol/l (132-148) 09/12/18 06:11 Potassium 4.5 MMOL/L (3.6-5.0) 09/12/18 06:11 Chloride 104 mmol/L (98-107) 09/12/18 06:11 Carbon Dioxide 26 mmol/L (22-30) 09/12/18 06:11 Anion Gap 12 (10-20) 09/12/18 06:11 BUN 20 mg/dl (7-17) H 09/12/18 06:11 Creatinine 0.7 mg/dl (0.7-1.2) 09/12/18 06:11 Est GFR ( Amer) > 60 09/12/18 06:11 Est GFR (Non-Af Amer) > 60 09/12/18 06:11 Random Glucose 90 mg/dL (65-105) 09/12/18 06:11 Calcium 8.2 mg/dL (8.4-10.2) L 09/12/18 06:11 Phosphorus 3.9 mg/dl (2.5-4.5) 09/12/18 06:11 Magnesium 2.1 MG/DL (1.6-2.3) 09/12/18 06:11 Total Bilirubin 0.3 mg/dl (0.2-1.3) 09/12/18 06:11 AST 17 U/L (14-36) 09/12/18 06:11 ALT 17 U/L (9-52) 09/12/18 06:11 Alkaline Phosphatase 42 U/L (38-126) 09/12/18 06:11 Total Protein 6.1 G/DL (6.3-8.2) L 09/12/18 06:11 Albumin 3.3 g/dL (3.5-5.0) L 09/12/18 06:11 Globulin 2.8 gm/dL (2.2-3.9) 09/12/18 06:11 Albumin/Globulin Ratio 1.2 (1.0-2.1) 09/12/18 06:11 Lipase 150 U/L (23-300) 09/11/18 22:28 Urine Color Yellow (YELLOW) 09/11/18 22: Urine Clarity Slighty-cloudy (Clear) 09/11/18 22: Urine pH 6.0 (5.0-8.0) 09/11/18 22: Ur Specific [place] 1.026 (1.003-1.030) 09/11/18 22: Urine Protein 30 mg/dL (NEGATIVE) 09/11/18 22: Urine Glucose (UA) Neg mg/dL (NEGATIVE) 09/11/18 22: Urine Ketones Negative mg/dL (NEGATIVE) 09/11/18 22:28 Urine Blood Negative (NEGATIVE) 09/11/18 22:28 Urine Nitrate Negative (NEGATIVE) 09/11/18 22: Urine Bilirubin Negative (NEGATIVE) 09/11/18 22: Urine Urobilinogen 0.2-1.0 mg/dL (0.2-1.0) 09/11/18 22:28 Ur Leukocyte Esterase Neg Gordon/uL (Negative) 09/11/18 22: Urine RBC (Auto) 3 /hpf (0-3) 09/11/18 22:28 Urine Microscopic WBC 1 /hpf (0-5) 09/11/18 22:28 Ur Squamous Epith Cells 1 /hpf (0-5) 09/11/18 22:28 Urine Bacteria Rare (<OCC) 09/11/18:28
[2018-09-13] MEDS: Ciprofloxacin 400mg/200ml D5W 400 MG/200 ML BAG IVPB SCH (10:15)
[2018-09-13 12:18] VITALS: PULSE 59; RESP 20; TEMP 99.1; O2SAT 100
== END 2018-09-13 13:00 | disposition home or self-care (01) | DRG 419 ==
LOC: H.ER 20:46 → H.ERHOLD 09-12 00:52 → H.PEDS 09-12 09:44
PROVIDERS: ADMIT Surgery; ATTEND Surgery
PROC: 0FT44ZZ Resection of Gallbladder, Percutaneous Endoscopic Approach (ICD-10-PCS; principal; 2018-09-12 10:30)
DX: K81.2 Acute cholecystitis with chronic cholecystitis (principal); K29.70 Gastritis, unspecified, without bleeding; Z98.84 Bariatric surgery status